=== PATIENT | female | born 1985 | race Two or more races ===

== ENCOUNTER → 2016-07-20 | Outpatient (REF) | payer BC ==
[2016-07-20 19:04] LABS: FREE T4 0.96 NG/DL (0.76-1.46)
== END ==
LOC: M SFHCCAPE 10:28 → M LABDRAWC 11:32
PROVIDERS: ATTEND Physician Assistant
DX: E66.01 Morbid (severe) obesity due to excess calories (principal)

== ENCOUNTER → 2017-05-27 | Outpatient (REF) | payer BC | LOC: M LAB REF 19:09 | DX: J06.9 Acute upper respiratory infection, unspecified (principal) | CPT/HCPCS: 87081 ==

== ENCOUNTER → 2018-07-08 | Outpatient (CLI) | payer BC ==
--- NOTE | 2018-07-08 16:38 | REP ---
Clinical: Nephrolithiasis. Technique: Real time henriquez scale ultrasound examination using curved array transducer. Findings: The bilateral kidneys are normal in contour, size, echogenicity, and reniform shape without hydronephrosis, obvious nephrolithiasis, cystic or renal mass lesion. Right kidney measures 12.5 x 5.4 x 4.6 cm. Left kidney measures 11.5 x 5.6 x 5.7 cm. Bladder is unremarkable. Impression: Normal renal ultrasound. No obvious hydronephrosis or nephrolithiasis. Electronically Signed by Trevor Montero MD 07/08/2018 04:30 P
== END ==
LOC: M RAD 15:52
PROVIDERS: ATTEND Physician Assistant
DX: N20.0 Calculus of kidney (principal)

== ENCOUNTER 2018-07-21 08:08 | Day surgery (SDC) | payer BC ==
[~2018-07-21] VITALS: Ht 172.7 cm; Wt 173.4 kg
[2018-07-21] MEDS ORDERED: [UNRECOGNIZED DRUG - CODE] (08:18)
[2018-07-21] MEDS ORDERED: PHEN30CA2 PO (08:18)
[2018-07-21] MEDS ORDERED: NS 1,000 ML IV ONE (09:00)
[2018-07-21] MEDS ORDERED: KETOROLAC 30 MG/ML VIAL (J1885) IV ONE (09:15)
[2018-07-21] MEDS ORDERED: ONDANSETRON 4MG/2ML VIAL (J2405) IV ONE (09:15)
[2018-07-21 09:29] LABS: BASO # 0.1 10^3/uL (0.0-0.2); BASO % 0.9 % (0.0-1.0); EOS # 0.2 10^3/uL (0.0-0.50); EOS % 1.9 % (0.0-3.0); HEMATOCRIT 42.5 % (36.0-47.0); HEMOGLOBIN 14.5 g/dl (12.0-15.5); LYMPH % 23.6 % (24.0-44.0); MEAN CORPUSCULAR HEMOGLOBIN 30.6 pg (27.0-33.0); MEAN CORPUSCULAR HGB CONC 34.1 g/dl (32.0-36.5); MEAN CORPUSCULAR VOLUME 89.7 fl (80.0-96.0); MONO # 0.4 10^3/uL (0.0-0.8); MONO % 4.3 % (0.0-5.0); NEUTROPHILS # 5.8 10^3/uL (1.8-7.7); NEUTROPHILS % 68.9 % (36.0-66.0); PLATELET COUNT, AUTOMATED 343 10^3/uL (150-450); RED BLOOD COUNT 4.74 10^6/uL (4.00-5.40); WHITE BLOOD COUNT 8.4 10^3/uL (4.0-10.0)
--- NOTE | 2018-07-21 09:48 | REP ---
CT of the abdomen pelvis without IV or bowel contrast: Comparison is the renal ultrasound dated 07/08/2018. There is a 6 mm calculus in the proximal right ureter at the UPJ. There is mild left hydronephrosis. There are no other left ureteral calculi are no bladder calculi. There is a nonobstructive 4 mm left renal calculus at the mid pole. There is a second nonobstructive 4 mm left renal calculus at the mid pole. There are no right renal or ureteral calculi. There is no right hydronephrosis. The visualized lung killian are clear. The unenhanced hepatic parenchyma, gallbladder, pancreas, spleen, adrenals, abdominal aorta are unremarkable. The bowel and mesentery are unremarkable. There is a small fat-containing umbilical hernia. Pelvis: The appendix is unremarkable. The uterus and adnexa are unremarkable. There is no adenopathy or ascites. The pelvic bowel loops are unremarkable. Impression: There is an obstructive 6 mm calculus in the proximal left ureter at the UPJ and mild left hydronephrosis. There are two nonobstructive left renal calculi. There are no bladder calculi. There are no right renal or right ureteral calculi. Otherwise, essentially negative CT of the abdomen pelvis without IV contrast. Electronically Signed by Kermit Stapleton MD 07/21/2018 09:40 A
[2018-07-21] MEDS ORDERED: MORPHINE 4 MG/ML 1ML VIAL/SYRINGE (J2270) IV ONE ×2 (10:45→15:00)
[2018-07-21 10:53] LABS: ALBUMIN 3.9 GM/DL (3.2-5.2); BILIRUBIN,DIRECT 0.1 MG/DL (0.0-0.2); BILIRUBIN,TOTAL 0.4 MG/DL (0.2-1.0); CALCIUM LEVEL 8.3 MG/DL (8.5-10.1); CREATININE FOR GFR 1.15 MG/DL (0.55-1.30); GLOMERULAR FILTRATION RATE 58.2 (>60); POTASSIUM SERUM 4.4 MEQ/L (3.5-5.1); TOTAL PROTEIN 7.1 GM/DL (6.4-8.2)
[2018-07-21] MEDS ORDERED: ALEV220T26 PO (11:56)
[2018-07-21] MEDS ORDERED: ORTH1TAB16 PO (11:56)
[2018-07-21] MEDS ORDERED: dexameTHASONE 4 MG/ML 1ML VIAL (J1100) As Ordered ONE (14:08)
[2018-07-21] MEDS ORDERED: fentaNYL 100 MCG/2 ML INJECTION (J3010) As Ordered ONE (14:08)
[2018-07-21] MEDS ORDERED: ONDANSETRON 4MG/2ML VIAL (J2405) As Ordered ONE (14:08)
[2018-07-21] MEDS ORDERED: LIDOCAINE 2% INJ 100 MG/5 ML SDV (FOR ANES.) As Ordered ONE (14:08)
[2018-07-21] MEDS ORDERED: MIDAZOLAM INJ 2 MG/2 ML VIAL (J2250) As Ordered ONE (14:08)
[2018-07-21] MEDS ORDERED: PROPOFOL 200 MG/20 ML VIAL As Ordered ONE ×2 (14:08→17:47)
[2018-07-21 15:00] VITALS: BP 143/67
[2018-07-21] MEDS ORDERED: CONRAY-60 60% 50ML VIAL (Q9961) As Ordered ONE (15:20)
--- NOTE | 2018-07-21 16:48 | SMCUROLCON ---
Urology Consultation General Date of Consultation 07/21/18 Reason For Consultation This patient is seen for Ureterolithiasis. History of Present Illness This is a 32 y/o F w/ no significant PMH, presenting to the ER today w/ acute onset left flank pain since yesterday evening. Evaluation in the ER was notable for an obstructing 6mm left ureteropelvic junction (UPJ) stone as well as 2 nonobstructing 4mm left intrarenal stones and a nonobstructing 5mm right renal stone. She denies dysuria. She denies fevers. She had nausea but no vomiting. The ER has had difficulty controlling her pain. Her UA appears negative for infection. Past Medical History Medical History None Surgical Hstory None Medications Current Medications Current Medications Home Med (Med Rec Complete!) ASDIRECTED XX ; Start 07/21/18 at 12:00; Stop 07/21/18 at 12:00; Status DC Allergies Allergies: Coded Allergies: No Known Allergies (Unverified , 07/21/18) Review of Systems Constitutional: Denies: Fever, Sweats, Weakness, Malaise Skin: Denies: Rash, Lesions, Breakdown, Nail Changes Pulmonary: Denies: Dyspnea, Cough Cardiovascular: Denies Chest Pain, Denies Palpitations Gastrointestinal: Reports: Nausea Genitourinary: Denies: Dysuria, Frequency, Incontinence, Hematuria Musculoskeletal: Reports: Back Pain (left flank pain) Psych: Reports: Mood Normal; Denies: Anxiety, Depression Physical Examination General Exam: Alert, Cooperative, No Acute Distress Chest Exam: Clear to auscultation Heart Exam: Rate Normal, Regular Rhythm Skin Exam: Nl turgor and temperature Neuro Exam: Normal Speech Psych Exam: Mental status NL, Mood NL Vital Signs/I&O Vital Signs Date Time Temp Pulse Resp B/P (MAP) Pulse Ox O2 Delivery O2 Flow Rate FiO2 07/21/18 15:20 16 07/21/18 15:00 97.2 60 143/67 (92) 99 07/21/18 14:43 Room Air Laboratory Data 24H Labs Laboratory Tests 2 07/21/18 09:18: Immature Granulocyte % (Auto) 0.4, White Blood Count 8.4, Red Blood Count 4.74, Hemoglobin 14.5, Hematocrit 42.5, Mean Corpuscular Volume 89.7, Mean Corpuscular Hemoglobin 30.6, Mean Corpuscular Hemoglobin Concent 34.1, Red Cell Distribution Width 12.5, Platelet Count 343, Neutrophils (%) (Auto) 68.9H, Lymphocytes (%) (Auto) 23.6L, Monocytes (%) (Auto) 4.3, Eosinophils (%) (Auto) 1.9, Basophils (%) (Auto) 0.9, Neutrophils # (Auto) 5.8, Lymphocytes # (Auto) 2.0, Monocytes # (Auto) 0.4, Eosinophils # (Auto) 0.2, Basophils # (Auto) 0.1, Nucleated Red Blood Cells % (auto) 0.0 07/21/18 09:20: Urine Color YELLOW, Urine Appearance CLEAR, Urine pH 6.0, Urine Specific Husser 1.020, Urine Protein NEGATIVE, Urine Glucose (UA) NEGATIVE, Urine Ketones NEGATIVE, Urine Blood 3+H, Urine Nitrite NEGATIVE, Urine Bilirubin NEGATIVE, Urine Urobilinogen 0.2, Urine Leukocyte Esterase NEGATIVE, Urine WBC (Auto) 2, Urine RBC (Auto) 155H, Urine Hyaline Casts (Auto) 0, Urine Bacteria (Auto) NEGATIVE, Urine Squamous Epithelial Cells 1, Urine Mucus (Auto) SMALL, Urine Sperm (Auto) , Anion Gap 9, Glomerular Filtration Rate 58.2L, Calcium Level 8.3L, Aspartate Amino Transf (AST/SGOT) 10, Alanine Aminotransferase (ALT/SGPT) 22, Alkaline Phosphatase 39L, Total Bilirubin 0.4, Direct Bilirubin 0.1, Total Protein 7.1, Albumin 3.9, Albumin/Globulin Ratio 1.22, Amylase Level 28, Lipase 111 CBC/BMP Laboratory Tests 07/21/18 09:18 Red Blood Count 4.74, Mean Corpuscular Volume 89.7, Mean Corpuscular Hemoglobin 30.6, Mean Corpuscular Hemoglobin Concent 34.1, Red Cell Distribution Width 12.5, Neutrophils (%) (Auto) 68.9 H, Lymphocytes (%) (Auto) 23.6 L, Monocytes (%) (Auto) 4.3, Eosinophils (%) (Auto) 1.9, Basophils (%) (Auto) 0.9, Neutrophils # (Auto) 5.8, Lymphocytes # (Auto) 2.0, Monocytes # (Auto) 0.4, Eosinophils # (Auto) 0.2, Basophils # (Auto) 0.1 07/21/18 09:20 Assessment This is a 32 y/o F w/ intractable pain due to a 6mm left UPJ stone as well as additional nonobstructing b/l intrarenal stones. I recommended that we take her to the OR today for cystoscopy, b/l ureteroscopy w/ laser lithotripsy, and possible b/l ureteral stent placement. After a discussion of the risks and benefits of the procedure, informed consent was signed. Plan - informed consent signed for cystoscopy, b/l ureteroscopy w/ laser lithotripsy, and possible b/l ureteral stent placement - NPO - ancef preop - plan discharge home after surgery if pain is controlled CY KENNEDY MD Jul 21, 2018 16:48
[2018-07-21] MEDS ORDERED: ONDANSETRON 4MG/2ML VIAL (J2405) IV PRN (17:00)
[2018-07-21] MEDS ORDERED: ceFAZolin SOD 1 GM in D5W MINI-BAG PLUS 50 ML IV ONE (17:00)
[2018-07-21] MEDS ORDERED: ACETAMINOPHEN TAB 650MG DOSE (2X325MG) PO PRN (17:00)
[2018-07-21] MEDS ORDERED: PERCOCET 5MG/325MG TAB PO PRN ×2 (17:00)
[2018-07-21] MEDS ORDERED: ceFAZolin 1GM INJ (J0690 PER 500MG) As Ordered ONE (17:08)
[2018-07-21] MEDS ORDERED: ceFAZolin 2 GM/D5W 50 ML IV BAG (J0690 PER 500MG) As Ordered ONE (17:08)
[2018-07-21] MEDS ORDERED: ALBUTEROL 6.7GM INHALER **FOR ANES. CART/OMNICELL ONLY As Ordered ONE (17:47)
[2018-07-21] MEDS ORDERED: fentaNYL 100 MCG/2 ML INJECTION (J3010) IV PRN (18:15)
[2018-07-21] MEDS ORDERED: LR 1,000 ML IV SCH (18:15)
--- NOTE | 2018-07-21 18:20 | REP ---
Retrograde pyelogram four views: Studies performed during placement of left and right ureteral stents. The proximal and distal pigtails of the stent are in satisfactory locations in the renal pelves and the urinary bladder. Fluoroscopic exposure time is 37 seconds. Fluoroscopic images are performed with last image hold technology and require no additional radiation. Electronically Signed by Kermit Stapleton MD 07/21/2018 06:12 P
[2018-07-21 19:30] VITALS: BP 138/85
--- NOTE | 2018-07-22 07:58 | RO ---
DATE OF PROCEDURE: 07/21/2018 PREPROCEDURE DIAGNOSIS: Bilateral kidney stones. POSTPROCEDURE DIAGNOSIS: Bilateral kidney stones. PROCEDURE: Cystoscopy, bilateral ureteroscopy with laser lithotripsy and basket extraction of stones, bilateral retrograde pyelograms with intraoperative interpretation of images, bilateral ureteral stent placement. SURGEON: Dr. Aristides Madsen [employer]HICLE OFFICER: None. ANESTHESIA: General. OPERATIVE INDICATIONS: This is a 32-year-old female who presented to the emergency room today with severe left flank pain. On CAT scan, she was found to have an obstructing 6 mm left ureteropelvic junction stone as well as small nonobstructing left kidney stones and a 5 mm nonobstructing right kidney stone. She was brought to the operating room today for the above listed procedures. DESCRIPTION OF PROCEDURE: The patient was brought to the operating room and general anesthesia was induced. Prophylactic antibiotics were infused. She was then placed in dorsal lithotomy position and prepped and draped in the usual sterile fashion. A guidewire was then advanced up the left collecting system. I then advanced the ureteral access sheath up the left collecting system. I went up the ureteral access with a flexible ureteroscope and of note within the proximal ureter it was very narrow. I had a hard time getting the flexible ureteroscope through the proximal ureter and into the left renal pelvis. Once inside the left renal pelvis, it was noted to be dilated. The 6 mm stone was seen inside the renal pelvis. I then utilized the 200 micron laser fiber to fragment that stone into smaller pieces and then removed some of the pieces. At this time, when I tried to go back in the kidney, I noted at this point I could not actually get the ureteroscope back through the proximal ureter. At this point, it was determined that all remaining stones in the left kidney should be able to pass on their own. I then did a retrograde pyelogram that was notable for moderate left hydronephrosis and no extravasation. I then withdrew the ureteroscope along with the access sheath and then utilized the previously placed wire to advance a 6 Israeli x 22-32 cm JJ ureteral stent up into the left collecting system. The wire was then removed and there were adequate curls of the stent in the left renal pelvis and in the bladder. I then advanced a wire up the right collecting system. The ureteral access was then advanced over the wire. I went back up with the flexible ureteroscope and similar to the left side the proximal ureter was very narrow. I was able to get the ureteroscope into the right kidney. I then examined all of the calyces and the only abnormality seen was 1-2 mm sized kidney stones. I could not see a 5 mm stone. I suspect this might have been potentially a calcification inside a renal pyramid. A retrograde pyelogram was then performed. This was notable for mild right hydronephrosis and no extravasation. I then withdrew the ureteroscope along with the access sheath and then advanced a 6 Israeli x 22-32 cm JJ ureteral stent up into the right collecting system. The wire was then removed and there were adequate curls of the stent in the right renal pelvis and the bladder. The bladder was then emptied of all fluid and this marked the conclusion of the procedure. The patient was then taken out of the dorsal lithotomy position, awakened from anesthesia and transported to the recovery room in stable condition. Estimated blood loss: 5 mL. Complications: None. Specimen: Kidney stone fragments. Plan: I will have the patient followup in the clinic in a few weeks for possible stent removal. We will get a KUB prior to removing her stents. JOHNNIE
[2018-07-28 14:12] LABS: Ca Ox Monohydrate 95 % (.)
== END 2018-07-21 21:57 | disposition home or self-care (01) ==
LOC: M ED 08:08 → M SDC 11:57 → M MS5PR 14:57 → M SDC 21:57
PROVIDERS: ATTEND Urology
DX: N20.1 Calculus of ureter (principal); K21.9 Gastro-esophageal reflux disease without esophagitis; E66.01 Morbid (severe) obesity due to excess calories; Z79.899 Other long term (current) drug therapy
CPT/HCPCS: 36415; 52356; 74176; 74420; 80048; 80076; 81001; 81025; 82150; 82360; 83690; 85025; 88300; 96361; 96374; 96375; 96376; 99284; C1769; C1894; C2617; J0690; J1100; J1885; J2250; J2270; J2405; J3010; Q9961

== ENCOUNTER → 2018-08-10 | Outpatient (REF) | payer BC ==
[~2018-08-10] MED LIST: ALEV220T26 PO; ORTH1TAB16 PO; PHEN30CA2 PO; [UNRECOGNIZED DRUG - CODE]
[2018-08-11 19:15] LABS: APPEARANCE, URINE MANUAL CLOUDY (CLEAR); COLOR, URINE MANUAL AMBER (YELLOW)
[2018-08-11 19:16] LABS: PH,URINE MAN 5.5 UNITS (5.0 - 7.0)
[2018-08-11 19:17] LABS: BILIRUBIN, URINE MANUAL NEGATIVE (NEGATIVE); BLOOD URINE MANUAL POSITIVE (NEGATIVE); GLUCOSE, URINE (UA) MANUAL NEGATIVE (NEGATIVE); KETONE, URINE MANUAL NEGATIVE (NEGATIVE); LEUKOCYTE ESTERASE, URINE MAN POSITIVE (NEGATIVE); NITRITE, URINE MANUAL NEGATIVE (NEGATIVE); PROTEIN, URINE MANUAL 3+ mg/dL (NEGATIVE); UROBILINOGEN, URINE MANUAL NORMAL (NORMAL)
[2018-08-11 20:43] LABS: AMORPHOUS SEDIMENT, URINE SMALL AMOUNT (NEGATIVE); BACTERIA, URINE MOD AMOUNT; MUCUS, URINE LARGE AMOUNT (NEGATIVE); RBC, URINE TNTC /hpf (0-3); SQUAMOUS EPITHELIAL CELL URINE LARGE AMOUNT /hpf (SMALL AMT); WBC, URINE TNTC /hpf (0-3)
[2018-08-11 20:44] LABS: HYALINE CAST, URINE NONE SEEN /lpf (0-1)
== END ==
LOC: M SFHCCAPE 16:35
PROVIDERS: ATTEND Physician Assistant
DX: R30.0 Dysuria (principal)

== ENCOUNTER → 2018-08-19 | Outpatient (CLI) | payer BC ==
--- NOTE | 2018-08-19 16:50 | REP ---
Supine abdomen two views: Comparison is the retrograde pyelogram dated 07/21/2018. There are bilateral ureteral stents with the proximal distal pigtails in satisfactory positions. No renal or ureteral calculi are identified. Bowel gas pattern is normal. Skeletal structures are unremarkable. Electronically Signed by Kermit Stapleton MD 08/19/2018 04:42 P
== END ==
LOC: M SMT 15:02
PROVIDERS: ATTEND Urology
DX: Z87.442 Personal history of urinary calculi (principal)

== ENCOUNTER → 2018-08-19 | Outpatient (CLI) | payer BC ==
[2018-08-19 13:55] LABS: BASO # 0.1 10^3/uL (0.0-0.2); BASO % 0.8 % (0.0-1.0); EOS # 0.3 10^3/uL (0.0-0.50); EOS % 3.8 % (0.0-3.0); HEMOGLOBIN 14.4 g/dl (12.0-15.5); LYMPH # 2.8 10^3/uL (1.5-4.5); LYMPH % 38.8 % (24.0-44.0); MEAN CORPUSCULAR HEMOGLOBIN 30.4 pg (27.0-33.0); MEAN CORPUSCULAR HGB CONC 34.3 g/dl (32.0-36.5); MEAN CORPUSCULAR VOLUME 88.6 fl (80.0-96.0); MONO # 0.4 10^3/uL (0.0-0.8); MONO % 5.2 % (0.0-5.0); NEUTROPHILS # 3.7 10^3/uL (1.8-7.7); NEUTROPHILS % 51.3 % (36.0-66.0); PLATELET COUNT, AUTOMATED 341 10^3/uL (150-450); RED BLOOD COUNT 4.74 10^6/uL (4.00-5.40); WHITE BLOOD COUNT 7.2 10^3/uL (4.0-10.0)
[2018-08-19 13:58] LABS: APPEARANCE, URINE CLOUDY (CLEAR); BACTERIA, URINE AUTO 1+ (NEGATIVE); BILIRUBIN, URINE AUTO NEGATIVE (NEGATIVE); BLOOD, URINE BLOOD 3+ (NEGATIVE); COLOR, URINE YELLOW (YELLOW); GLUCOSE, URINE (UA) AUTO NEGATIVE (NEGATIVE); KETONE, URINE AUTO NEGATIVE (NEGATIVE); LEUKOCYTE ESTERASE, URINE AUTO 3+ (NEGATIVE); MUCUS, URINE SMALL (NEGATIVE); NITRITE, URINE AUTO NEGATIVE (NEGATIVE); PROTEIN, URINE AUTO 2+ mg/dL (NEGATIVE); RBC, URINE AUTO TNTC /HPF (0-3); SPECIFIC GRAVITY URINE AUTO 1.017 (1.002-1.035); SQUAMOUS EPITHELIAL CELL UR AU 4 /HPF (0-6); UROBILINOGEN, URINE AUTO 0.2 mg/dL (0.0-2.0); WBC, URINE AUTO 38 /HPF (0-3)
[2018-08-19 14:15] LABS: HEMOGLOBIN A1c 5.4 %
[2018-08-19 14:45] LABS: ALBUMIN 3.7 GM/DL (3.2-5.2); ALT/SGPT 21 U/L (12-78); BILIRUBIN,TOTAL 0.5 MG/DL (0.2-1.0); BLOOD UREA NITROGEN 12 MG/DL (7-18); CALCIUM LEVEL 8.7 MG/DL (8.5-10.1); CARBON DIOXIDE LEVEL 27 MEQ/L (21-32); CHLORIDE LEVEL 106 MEQ/L (98-107); CREATININE FOR GFR 0.76 MG/DL (0.55-1.30); FREE T4 0.96 NG/DL (0.76-1.46); GLOMERULAR FILTRATION RATE > 60.0 (>60); GLUCOSE, FASTING 94 MG/DL (70-100); POTASSIUM SERUM 4.6 MEQ/L (3.5-5.1); SODIUM LEVEL 139 MEQ/L (136-145); TOTAL 25(OH) VITAMIN D 23.1 NG/ML (30.0-100.0); TOTAL PROTEIN 7.4 GM/DL (6.4-8.2)
== END ==
LOC: M LAB 13:16
PROVIDERS: ATTEND Physician Assistant
DX: R30.0 Dysuria (principal)

== ENCOUNTER → 2019-06-05 | Outpatient (CLI) | payer BC ==
[~2019-06-05] MED LIST changes: -ORTH1TAB16 PO; +ORTH1TAB8 PO
[2019-06-05 20:17] LABS: BASO # 0.1 10^3/uL (0.0-0.2); BASO % 0.7 % (0.0-1.0); EOS # 0.2 10^3/uL (0.0-0.5); HEMATOCRIT 43.7 % (36.0-47.0); HEMOGLOBIN 14.1 g/dl (12.0-15.5); LYMPH # 3.3 10^3/uL (1.5-5.0); LYMPH % 44.5 % (24.0-44.0); MEAN CORPUSCULAR HEMOGLOBIN 29.4 pg (27.0-33.0); MEAN CORPUSCULAR HGB CONC 32.3 g/dl (32.0-36.5); MONO # 0.5 10^3/uL (0.0-0.8); MONO % 6.1 % (0.0-5.0); NEUTROPHILS # 3.4 10^3/uL (1.5-8.5); NEUTROPHILS % 46.6 % (36.0-66.0); PLATELET COUNT, AUTOMATED 283 10^3/uL (150-450); WHITE BLOOD COUNT 7.3 10^3/uL (4.0-10.0)
[2019-06-05 20:34] LABS: ALBUMIN 4.2 GM/DL (3.2-5.2); ALT/SGPT 69 U/L (12-78); BILIRUBIN,TOTAL 0.5 MG/DL (0.2-1.0); BLOOD UREA NITROGEN 7 MG/DL (7-18); CALCIUM LEVEL 9.2 MG/DL (8.5-10.1); CARBON DIOXIDE LEVEL 25 MEQ/L (21-32); CHLORIDE LEVEL 106 MEQ/L (98-107); CREATININE FOR GFR 0.86 MG/DL (0.55-1.30); FERRITIN 31 NG/ML (8-252); GLOMERULAR FILTRATION RATE > 60.0 (>60); GLUCOSE, FASTING 87 MG/DL (70-100); IRON (FE) 90 UG/DL (50-170); MAGNESIUM LEVEL 2.5 MG/DL (1.8-2.4); PERCENT SATURATION 26.9 % (13.2-45.0); PHOSPHORUS LEVEL 2.9 MG/DL (2.5-4.9); POTASSIUM SERUM 4.4 MEQ/L (3.5-5.1); SODIUM LEVEL 137 MEQ/L (136-145); TOTAL IRON BINDING CAPACITY 334 UG/DL (250-450); TOTAL PROTEIN 7.4 GM/DL (6.4-8.2)
[2019-06-05 20:38] LABS: VITAMIN B12 LEVEL 1407 PG/ML (247-911)
[2019-06-05 20:46] LABS: HEMOGLOBIN A1c 5.4 %
== END ==
LOC: M WUC 16:40
PROVIDERS: ATTEND Surgery
DX: K91.2 Postsurgical malabsorption, not elsewhere classified (principal); E55.9 Vitamin D deficiency, unspecified; Z98.84 Bariatric surgery status

== ENCOUNTER → 2020-05-13 | Outpatient (REF) | payer BC ==
[2020-05-13 17:07] LABS: BASO % 0.5 % (0.0-1.0); EOS # 0.1 10^3/uL (0.0-0.5); EOS % 1.8 % (0.0-3.0); HEMATOCRIT 42.9 % (36.0-47.0); LYMPH # 2.1 10^3/uL (1.5-5.0); LYMPH % 33.6 % (24.0-44.0); MEAN CORPUSCULAR HEMOGLOBIN 30.7 pg (27.0-33.0); MEAN CORPUSCULAR HGB CONC 32.6 g/dl (32.0-36.5); MEAN CORPUSCULAR VOLUME 94.1 fl (80.0-96.0); MONO # 0.4 10^3/uL (0.0-0.8); MONO % 5.9 % (0.0-5.0); NEUTROPHILS # 3.6 10^3/uL (1.5-8.5); PLATELET COUNT, AUTOMATED 303 10^3/uL (150-450); RED BLOOD COUNT 4.56 10^6/uL (4.00-5.40); WHITE BLOOD COUNT 6.1 10^3/uL (4.0-10.0)
[2020-05-13 17:28] LABS: ALBUMIN 3.8 GM/DL (3.2-5.2); ALT/SGPT 16 U/L (12-78); BILIRUBIN,TOTAL 0.4 MG/DL (0.2-1.0); BLOOD UREA NITROGEN 11 MG/DL (7-18); CALCIUM LEVEL 8.7 MG/DL (8.5-10.1); CARBON DIOXIDE LEVEL 28 MEQ/L (21-32); CHLORIDE LEVEL 108 MEQ/L (98-107); CHOLESTEROL LEVEL 139 MG/DL (<200); CHOLESTEROL RISK RATIO 2.278 (<5); CREATININE FOR GFR 0.81 MG/DL (0.55-1.30); GLOMERULAR FILTRATION RATE > 60.0 (>60); GLUCOSE, FASTING 88 MG/DL (70-100); HDL CHOLESTEROL 61 MG/DL (>40); IRON (FE) 131 UG/DL (50-170); LDL CHOLESTEROL 49 MG/DL (<100); NON-HDL-C 78 MG/DL; SODIUM LEVEL 142 MEQ/L (136-145); TOTAL PROTEIN 6.9 GM/DL (6.4-8.2); TRIGLYCERIDES LEVEL 143 MG/DL (<150); URIC ACID 6.5 MG/DL (2.6-6.0)
[2020-05-13 17:31] LABS: TOTAL 25(OH) VITAMIN D 32.8 NG/ML (30.0-100.0); VITAMIN B12 LEVEL 468 PG/ML (247-911)
== END ==
LOC: M SFHCCLAY 13:12
PROVIDERS: ATTEND Physician Assistant
DX: Z98.84 Bariatric surgery status (principal); E79.0 Hyperuricemia without signs of inflammatory arthritis and tophaceous disease

== ENCOUNTER → 2020-05-13 | Outpatient (REF) | payer BC ==
[2020-05-13 16:29] LABS: BASO % 0.7 % (0.0-1.0); EOS # 0.1 10^3/uL (0.0-0.5); HEMATOCRIT 42.6 % (36.0-47.0); HEMOGLOBIN 13.8 g/dl (12.0-15.5); LYMPH # 2.1 10^3/uL (1.5-5.0); LYMPH % 34.1 % (24.0-44.0); MEAN CORPUSCULAR HEMOGLOBIN 30.3 pg (27.0-33.0); MEAN CORPUSCULAR HGB CONC 32.4 g/dl (32.0-36.5); MEAN CORPUSCULAR VOLUME 93.6 fl (80.0-96.0); MONO # 0.3 10^3/uL (0.0-0.8); MONO % 5.6 % (0.0-5.0); NEUTROPHILS # 3.5 10^3/uL (1.5-8.5); NEUTROPHILS % 57.3 % (36.0-66.0); PLATELET COUNT, AUTOMATED 301 10^3/uL (150-450); RED BLOOD COUNT 4.55 10^6/uL (4.00-5.40); WHITE BLOOD COUNT 6.1 10^3/uL (4.0-10.0)
[2020-05-13 16:35] LABS: HEMATOCRIT 42.6 % (36.0-47.0)
[2020-05-13 17:25] LABS: ALBUMIN 3.8 GM/DL (3.2-5.2); ALT/SGPT 14 U/L (12-78); BILIRUBIN,TOTAL 0.5 MG/DL (0.2-1.0); BLOOD UREA NITROGEN 10 MG/DL (7-18); CARBON DIOXIDE LEVEL 29 MEQ/L (21-32); CHLORIDE LEVEL 107 MEQ/L (98-107); CREATININE FOR GFR 0.86 MG/DL (0.55-1.30); FERRITIN 17 NG/ML (8-252); GLOMERULAR FILTRATION RATE > 60.0 (>60); GLUCOSE, FASTING 84 MG/DL (70-100); IRON (FE) 131 UG/DL (50-170); MAGNESIUM LEVEL 2.3 MG/DL (1.8-2.4); PERCENT SATURATION 36.7 % (13.2-45.0); PHOSPHORUS LEVEL 3.3 MG/DL (2.5-4.9); POTASSIUM SERUM 3.9 MEQ/L (3.5-5.1); SODIUM LEVEL 139 MEQ/L (136-145); TOTAL IRON BINDING CAPACITY 357 UG/DL (250-450); TOTAL PROTEIN 6.9 GM/DL (6.4-8.2)
[2020-05-13 17:31] LABS: TOTAL 25(OH) VITAMIN D 39.3 NG/ML (30.0-100.0)
[2020-05-13 17:32] LABS: VITAMIN B12 LEVEL 536 PG/ML (247-911)
== END ==
LOC: M LABDRAWC 16:05
PROVIDERS: ATTEND Physician Assistant
DX: K91.2 Postsurgical malabsorption, not elsewhere classified (principal); E55.9 Vitamin D deficiency, unspecified; Z86.39 Personal history of other endocrine, nutritional and metabolic disease; Z98.84 Bariatric surgery status

== ENCOUNTER → 2021-05-05 | Outpatient (REF) | payer OTHER ==
[~2021-05-05] MED LIST changes: -PHEN30CA2 PO; +PHEN30CA21 PO
[2021-05-05 17:39] LABS: GC DNA AMPLIFICATION NEGATIVE (NEGATIVE)
== END ==
LOC: M SFHCCAPE 07:47
PROVIDERS: ATTEND Physician Assistant
DX: Z01.419 Encounter for gynecological examination (general) (routine) without abnormal findings (principal)
CPT/HCPCS: 87624; 87661; G0123

== ENCOUNTER → 2021-05-15 | Outpatient (REF) | payer OTHER ==
[~2021-05-15] MED LIST changes: +PHEN30CA2 PO; -PHEN30CA21 PO
[2021-05-15 15:39] LABS: BASO # 0.1 10^3/uL (0.0-0.2); BASO % 0.9 % (0.0-1.0); EOS # 0.2 10^3/uL (0.0-0.5); HEMATOCRIT 41.1 % (36.0-47.0); HEMOGLOBIN 13.8 g/dl (12.0-15.5); LYMPH # 2.7 10^3/uL (1.5-5.0); LYMPH % 50.4 % (24.0-44.0); MEAN CORPUSCULAR HEMOGLOBIN 31.3 pg (27.0-33.0); MEAN CORPUSCULAR HGB CONC 33.6 g/dl (32.0-36.5); MEAN CORPUSCULAR VOLUME 93.2 fl (80.0-96.0); MONO # 0.3 10^3/uL (0.0-0.8); MONO % 5.4 % (2.0-8.0); NEUTROPHILS # 2.2 10^3/uL (1.5-8.5); NEUTROPHILS % 40.1 % (36.0-66.0); PLATELET COUNT, AUTOMATED 310 10^3/uL (150-450); RED BLOOD COUNT 4.41 10^6/uL (4.00-5.40); WHITE BLOOD COUNT 5.4 10^3/uL (4.0-10.0)
[2021-05-15 15:53] LABS: ALBUMIN 3.5 GM/DL (3.2-5.2); ALT/SGPT 16 U/L (12-78); BILIRUBIN,TOTAL 0.6 MG/DL (0.2-1.0); BLOOD UREA NITROGEN 12 MG/DL (7-18); CALCIUM LEVEL 8.7 MG/DL (8.5-10.1); CARBON DIOXIDE LEVEL 29 MEQ/L (21-32); CHLORIDE LEVEL 106 MEQ/L (98-107); CHOLESTEROL LEVEL 146 MG/DL (<200); CHOLESTEROL RISK RATIO 2.517 (<5); CREATININE FOR GFR 0.81 MG/DL (0.55-1.30); FOLATE 18.7 NG/ML; GLOMERULAR FILTRATION RATE > 60.0 (>60); GLUCOSE, FASTING 84 MG/DL (70-100); HDL CHOLESTEROL 58 MG/DL (>40); LDL CHOLESTEROL 64 MG/DL (<100); NON-HDL-C 88 MG/DL; POTASSIUM SERUM 4.2 MEQ/L (3.5-5.1); SODIUM LEVEL 141 MEQ/L (136-145); TOTAL PROTEIN 6.6 GM/DL (6.4-8.2); TRIGLYCERIDES LEVEL 122 MG/DL (<150); VITAMIN B12 LEVEL 401 PG/ML
[2021-05-15 15:55] LABS: HEMOGLOBIN A1c 5.2 %
== END ==
LOC: M SFHCCAPE 07:15
PROVIDERS: ATTEND Physician Assistant
DX: Z00.00 Encounter for general adult medical examination without abnormal findings (principal)